=== PATIENT | female | born 1980 | race American Indian/Alaskan Native ===

== ENCOUNTER 2021-06-25 00:09 | Emergency (ER) | payer MEDICAID ==
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
[2021-06-25 01:51] LABS: Basophils # (Auto) 0.1 K/mm3 (0.0-0.1); Basophils % (Auto) 0.9 % (0.0-1.8); Eosinophils # (Auto) 0.1 K/mm3 (0.0-0.4); Lymphocytes # (Auto) 2.6 K/mm3 (1.2-5.4); Lymphocytes % (Auto) 37.8 % (13.4-35.0); Mean Corpuscular HGB Conc 33 % (30-34); Mean Corpuscular Volume 97 fl (79-97); Monocytes # (Auto) 0.5 K/mm3 (0.0-0.8); Monocytes % (Auto) 7.2 % (0.0-7.3); Platelet Count 344 K/mm3 (140-440); Red Blood Count 4.01 M/mm3 (3.65-5.03); Red Cell Distribution Width 12.4 % (13.2-15.2)
[2021-06-25 02:21] LABS: Bilirubin,Urine NEG (Negative); Blood,Urine LG (Negative); Color,Urine Red (Yellow); Urobilinogen,Urine < 2.0 mg/dL (<2.0)
[2021-06-25 02:22] LABS: RBC,Urine > 182.0 /HPF (0.0-6.0)
--- NOTE | 2021-06-25 04:14 | Ultrasound Report ---
US OB transvaginal, US OB <= 14 weeks fetus INDICATION / CLINICAL INFORMATION: Vaginal bleeding while . COMPARISON: None available. FINDINGS: Uterus measures 7.8 cm in length. Focal endometrial fluid may be a small gestational sac. This measur es 0.97 cm which would correspond with a gestational sac date of 5 weeks 5 days. No yolk sac or pole is seen. Right ovary is unremarkable. Left ovary contains a 1.8 cm cyst. No adnexal lesions. No free fluid. IMPRESSION: 1. Focal endometrial fluid may represent empty gestational sac measuring 5 weeks 5 days. No yolk sac or pole. Signer Name: Eduin Moreno MD Signed: 06/25/2021 4:10 AM Workstation Name: [id number]
[2021-06-25 07:12] VITALS: BP 120/86
== END 2021-06-25 07:08 | disposition home or self-care (01) ==
LOC: ED 00:09
DX: O03.9 Complete or unspecified spontaneous abortion without complication (principal)
CPT/HCPCS: 36415; 76801; 76817; 81001; 84702; 85025; 86900; 86901; 99284